=== PATIENT | female | born 1965 | race Caucasian/White ===

== ENCOUNTER → 2016-11-25 | Outpatient (CLI) | payer BC ==
--- NOTE | 2016-11-29 07:05 | MM ---
Reason for exam: screening (asymptomatic). Last mammogram was performed 5 years and 11 months ago. History: Patient is nulliparous. Taking estrogen for 2 months. Physical Findings: A clinical breast exam by your physician is recommended on an annual basis and results should be correlated with mammographic findings. MG Screening Mammo w CAD Bilateral CC and MLO view(s) were taken. Prior study comparison: January 06, 2011, bilateral digital screening mammo w/CAD. May 27, 2006, bilateral screening mammogram w/CAD. The breast tissue is extremely dense which could obscure a lesion on mammography. No significant changes when compared with prior studies. ASSESSMENT: Benign, BI-RAD 2 RECOMMENDATION: Routine screening mammogram of both breasts in 1 year.
== END | disposition home or self-care (01) ==
LOC: RADMAMWWP 13:03
PROVIDERS: ATTEND Family Medicine
DX: Z12.31 Encounter for screening mammogram for malignant neoplasm of breast (principal)

== ENCOUNTER → 2017-03-11 | Outpatient (CLI) | payer BC, OTHER ==
--- NOTE | 2017-03-11 12:32 | ECHOS ---
DATE OF SERVICE: 03/11/2017 AGE: 52Y SEX: F HT: 63" WT: 160 lbs. Protocol Andi: X Others: Stress Echo Stage: IV Dur. of Exercise: 9:50 *Heart Rate Blood Pressure *Rest: 78 Rest: 118/59 * *Max. Achieved: 155 Maximum BP: 136/69 85% PMHR: 141 100% PMHR: 166 *METS: 10.7 INDICATIONS: Dyspnea. MEDICATIONS: - Patient was exercised for a total period of 9 minutes and 50 seconds. Peak heart rate of 155 was achieved. Maximum blood pressure of 136/69 mmHg was noted. Resting EKG shows normal sinus rhythm with normal [place] interval and QRS duration and normal ST-T waves. No ST segment depression suggestive of ischemia is noted. Baseline echocardiographic images reveal a normal left ventricular chamber size with normal left ventricular systolic function. In the immediate postexercise period, normal increase in the wall thickness and contractility is noted. FINAL IMPRESSION: 1. This stress echocardiographic study is negative for stress-induced ischemia. 2. EKG portion of the stress test is not suggestive of ischemia. 3. The patient's exercise tolerance is normal.
== END | disposition home or self-care (01) ==
LOC: RADNMMAIN 08:57
PROVIDERS: ATTEND Family Medicine
DX: R06.00 Dyspnea, unspecified (principal)
CPT/HCPCS: 93017; 93350

== ENCOUNTER → 2017-05-20 | Outpatient (CLI) | payer OTHER ==
[2017-05-20 15:45] LABS: CHCM 33.6; HCT 44.2 % (34.0-46.0); HDW 2.25; HGB 14.6 gm/dL (11.4-16.0); MCH 30.5 pg (25.0-35.0); MCV 92.6 fL (80.0-100.0); Mean Platelet Volume 6.9; RBC 4.77 m/uL (3.80-5.40); RDW 13.2 % (11.5-15.5); WBC 6.6 k/uL (3.8-10.6)
[2017-05-20 15:50] LABS: INR 1.1 (<1.2); Partial Thromboplastin Time 24.9 sec (22.0-30.0)
[2017-05-20 16:00] LABS: Appearance,Urine Cloudy (Clear); Bilirubin,Urine Negative (Negative); Glucose,Urine (UA) Negative (Negative); Ketones,Urine Negative (Negative); Leukocyte Esterase,Urine Negative (Negative); Mucus,Urine Rare /hpf; Nitrite,Urine Negative (Negative); Particle Count 9904; Protein,Urine Negative (Negative); RBC,Urine 7 /hpf (0-5); Specific Gravity,Urine 1.014 (1.001-1.035); Squamous Epithelial Cell,Urine <1 /hpf (0-4); UA Billing (MACRO vs. MICRO) MICRO; Urobilinogen,Urine <2.0 mg/dL (<2.0); WBC,Urine 2 /hpf (0-5)
[2017-05-20 16:03] LABS: ALT 30 U/L (9-52); AST 19 U/L (14-36); Alkaline Phosphatase 66 U/L (38-126); Anion Gap 9 mmol/L; Blood Urea Nitrogen 16 mg/dL (7-17); Calcium 9.8 mg/dL (8.4-10.2); Carbon Dioxide 28 mmol/L (22-30); Chloride 104 mmol/L (98-107); Glucose 88 mg/dL (74-99); Non-African American GFR(MDRD) 58 (>60 ml/min/1.73 sqM); Potassium 4.4 mmol/L (3.5-5.1); Sodium 141 mmol/L (137-145); Total Bilirubin 0.3 mg/dL (0.2-1.3)
== END | disposition home or self-care (01) ==
LOC: LABPAT 15:06
PROVIDERS: ATTEND Orthopaedic Surgery Sports Medicine
DX: Z01.810 Encounter for preprocedural cardiovascular examination (principal); Z01.812 Encounter for preprocedural laboratory examination
CPT/HCPCS: 80053; 81001; 85027; 85610; 85730; 87070

== ENCOUNTER 2017-06-09 12:26 | Inpatient (IN) | payer OTHER ==
[~2017-06-09 12:26] MED LIST: ACETAMINOPHEN TAB 500 MG TAB PO ONE; DEXAMETHASONE SOD PHOSPHATE 10 MG/ML 1 ML VIAL IV ONE; HYDROmorphone 1 MG/ML 1 ML SYRINGE IVP PRN; LIDOCAINE 1% 20 ML VIAL (10MG/ML) FOR IV START INTRADERMA PRN; MELOXICAM 7.5 MG TAB PO ONE; ONDANSETRON 4 MG/2 ML VIAL IVP ONE; SCOPOLAMINE 1.5MG/72HR PATCH TRANSDERM ONE; TRANEXAMIC ACID 1,000 MG in SODIUM CHLORIDE 0.9% 100 ML IVPB ONE; ceFAZolin 2 GM in SODIUM CHLORIDE 0.9% 100 ML IVPB ONE
[2017-06-09] MEDS: LACTATED RINGERS 1,000 ML IV SCH ×2 (12:56→21:41)
[2017-06-09] MEDS ORDERED: MIDAZOLAM 2 MG/2 ML VIAL IV ONE ×2 (13:27)
[2017-06-09] MEDS ORDERED: SODIUM CHLORIDE 0.9% 100 ML BAG ONE (13:41)
[2017-06-09] MEDS ORDERED: fentaNYL (PF) 50 MCG/ML 2 ML AMP ONE (13:41)
[2017-06-09] MEDS ORDERED: MIDAZOLAM 2 MG/2 ML VIAL ONE (13:41)
[2017-06-09] MEDS ORDERED: TRANEXAMIC ACID 1,000 MG/10 ML VIAL ONE (13:41)
[2017-06-09] MEDS ORDERED: MORPHINE SULFATE (PF) 0.3 MG/0.3 ML SYR ONE (13:41)
[2017-06-09] MEDS ORDERED: PROPOFOL 10 MG/ML 20 ML VIAL IV ONE (13:41)
[2017-06-09] MEDS: ROPIVACAINE 246.25 MG, EPINEPHrine 0.5 MG, KETOROLAC 30 MG, cloNIDine HCL/PF 80 MCG, WA... MISCELLANE ONE ×10 (14:24→14:52)
[2017-06-09] MEDS ORDERED: ceFAZolin 3,000 MG in SODIUM CHLORIDE 0.9% IRRIGATIO 3,000 ML IRRIGATION ONE (14:25)
[2017-06-09] MEDS ORDERED: LACTATED RINGERS 1,000 ML IV ONE (14:51)
[2017-06-09] MEDS ORDERED: NALOXONE 0.4 MG/ML 1 ML VIAL IV PRN ×2 (14:58→16:02)
[2017-06-09] MEDS ORDERED: MORPHINE SULFATE 4 MG/ML SYRINGE IVP PRN (14:58)
[2017-06-09] MEDS ORDERED: ONDANSETRON 4 MG/2 ML VIAL IVP PRN (14:58)
[2017-06-09] MEDS ORDERED: ACETAMINOPHEN TAB 325 MG TAB PO PRN (16:02)
[2017-06-09] MEDS ORDERED: NA PHOS,M-B/NA PHOS,DI-BA 133 ML ENEMA RECTAL PRN (16:02)
[2017-06-09] MEDS ORDERED: BISACODYL 10 MG SUPP RECTAL PRN (16:02)
[2017-06-09] MEDS ORDERED: TEMAZEPAM 15 MG CAP PO PRN (16:02)
[2017-06-09] MEDS ORDERED: MAGNESIUM HYDROXIDE 2,400 MG/10 ML CUP PO PRN (16:02)
[2017-06-09] MEDS ORDERED: traMADol 50 MG TAB PO PRN (16:02)
[2017-06-09] MEDS ORDERED: DIAZEPAM 5 MG TAB PO PRN (16:02)
[2017-06-09] MEDS ORDERED: HYDROmorphone 1 MG/ML 1 ML SYRINGE IVP PRN ×2 (16:02)
[2017-06-09] MEDS ORDERED: HYDROcodone/APAP 7.5-325MG 1 EACH TAB PO PRN (16:02)
--- NOTE | 2017-06-09 16:33 | XR ---
EXAMINATION TYPE: XR knee limited LT DATE OF EXAM: 06/09/2017 CLINICAL HISTORY: Right knee pain and arthritis status post total knee replacement. TECHNIQUE: Portable AP and crosstable lateral views of the left knee are obtained immediately postop eratively. COMPARISON: None FINDINGS: Metallic hardware from total left knee arthroplasty is seen and appears satisfactory in al ignment and position. There is evidence of recent surgery with diffuse subcutaneous gas. IMPRESSION: METALLIC HARDWARE FROM TOTAL LEFT KNEE ARTHROPLASTY IS SATISFACTORY IN ALIGNMENT.
[2017-06-09] MEDS: diphenhydrAMINE 50 MG/ML 1 ML VIAL IVP PRN ×2 (16:42→21:45)
[2017-06-09 17:20] VITALS: BMI 28.3
[2017-06-09 21:22] LABS: Glucose,Whole Blood 115 mg/dL (75-99)
[2017-06-09] MEDS: ASPIRIN 325 MG TAB PO SCH (21:40)
[2017-06-09] MEDS: SENNOSIDES-DOCUSATE SODIUM 1 EACH TAB PO SCH (21:40)
[2017-06-10] MEDS: ceFAZolin 2 GM in SODIUM CHLORIDE 0.9% 100 ML IVPB SCH ×2 (00:06→09:10)
[2017-06-10] MEDS: LACTATED RINGERS 1,000 ML IV SCH ×3 (05:05→11:13)
[2017-06-10] MEDS: diphenhydrAMINE 50 MG/ML 1 ML VIAL IVP PRN (05:06)
--- NOTE | 2017-06-10 07:26 | P.PN ---
Progress Note - Text Date: 06/10/2017 Time: 707 The patient is status post, left total knee arthroplasty. Vital signs stable VAS: 2-10 The patient incurred some minimal itching yesterday, this itching is now subsiding. Pain meds to be managed by service.
[2017-06-10 07:52] LABS: Basophils % (A) 0 %; CH 29.9; CHCM 32.8; Eosinophils % (A) 0 %; HDW 2.27; HGB 12.1 gm/dL (11.4-16.0); Luc # (Auto) 0.14; Luc % (Auto) 1; Lymphocytes # (A) 1.7 k/uL (1.0-4.8); Lymphocytes % (A) 12 %; MCH 30.7 pg (25.0-35.0); MCHC 33.6 g/dL (31.0-37.0); MCV 91.5 fL (80.0-100.0); Mean Platelet Volume 6.6; Monocytes # (A) 0.7 k/uL (0-1.0); Monocytes % (A) 5 %; Neutrophils # (A) 11.1 k/uL (1.3-7.7); Neutrophils % (A) 81 %; RBC 3.93 m/uL (3.80-5.40); RDW 12.3 % (11.5-15.5); WBC 13.6 k/uL (3.8-10.6); WBC (Perox) 13.58
[2017-06-10] MEDS: HYDROcodone/APAP 7.5-325MG 1 EACH TAB PO PRN ×3 (09:08→20:27)
[2017-06-10] MEDS: MULTIVITAMINS, THERA 1 EACH TAB PO SCH (09:10)
[2017-06-10] MEDS: ASPIRIN 325 MG TAB PO SCH ×2 (09:10→20:27)
--- NOTE | 2017-06-10 09:42 | P.PN ---
Subjective Principal diagnosis: Status post left total knee arthroplasty Patient is postop day #1 status post left total knee arthroplasty. She is seen at bedside this morning. She has pain at the surgical site as expected. She denies any new complaints including numbness, tingling, calf pain, fever, chills , chest pain or shortness of breath. Objective - Vital Signs Vital signs: Vital Signs Temp 98.0 F 06/10/17 07:00 Pulse 73 06/10/17 07:00 Resp 16 06/10/17 07:00 BP 110/64 06/10/17 07:00 Pulse Ox 97 06/10/17 07:00 Intake & Output 06/09/17 06/10/17 06/10/17 18:59 06:59 18:59 Intake Total 1501 2000 Output Total 350 1300 Balance 1151 700 Weight 72.575 kg Intake: IV 1501 1200 Lactated Ringers 1,000 ml 1200 @ 100 mls/hr IV .Q10H LISSA Rx#:[id number] Oral 800 Output: Urine 250 1300 Estimated Blood Loss 100 Other: Voiding Method Indwelling Catheter Indwelling Catheter - Exam Inspection of the left lower extremity shows benign surgical wound. There is no active bleeding or drainage. Calf is soft and nontender. Motor and sensation is intact throughout the left lower extremity. 2+ dorsalis pedis pulses and less then 2 second capillary refill is present. - Constitutional General appearance: Present: no acute distress - Psychiatric Psychiatric: Present: A&O x's 3, appropriate affect, intact judgment & insight - Labs CBC & Chem 7: 06/10/17 06:47 Labs: Abnormal Lab Results - Last 24 Hours (Table) 06/09/17 06/10/17 Range/Units 21:15 06:47 WBC 13.6 H (3.8-10.6) k/uL Neutrophils # 11.1 H (1.3-7.7) k/uL POC Glucose (mg/dL) 115 H (75-99) mg/dL Assessment and Plan (1) Osteoarthritis of left knee Narrative/Plan: She'll continue with postop orthopedic protocol including pain management, wound care and physical therapy along with DVT prophylaxis and postoperative medical management. Expected discharge to home with home health tomorrow 2016 Status: Acute Time with Patient: Less than 30
[2017-06-10] MEDS: HYDROmorphone 1 MG/ML 1 ML SYRINGE IVP PRN ×3 (11:19→22:45)
--- NOTE | 2017-06-10 14:43 | OP ---
DATE OF PROCEDURE: 06/09/2017 PREOPERATIVE DIAGNOSIS: Left knee osteoarthrosis. POSTOPERATIVE DIAGNOSIS: Left knee osteoarthrosis. OPERATION: Left total knee arthroplasty. SURGEON: Marty Gupta MD REMEDIAL READING TEACHER: Jaiden Sanchez PA-C ANESTHESIA: Spinal with sedation. ESTIMATED BLOOD LOSS: 100 mL TOURNIQUET TIME: 48 minutes at 250 mmHg. COMPLICATIONS: None apparent. DRAINS: None. DISPOSITION: Postanesthesia care unit. INDICATIONS: Elba is a very pleasant 52-year-old female with longstanding history of left knee pain. History and physical examination consistent with advanced left knee osteoarthrosis. She has been through significant nonoperative management up to this point. Further treatment options were discussed and she has decided to go forward with left total knee arthroplasty. The risks of the procedure were discussed with her in detail. These risks include but are not limited to the risk of infection, nerve damage, bleeding, pain, and small risk of deep vein thrombosis, which could lead to fatal pulmonary embolism. There is also risk of loosening of the implant which could require revision operation. The patient understands these risks. All of her questions were answered to her satisfaction and appropriate informed consent was obtained. DESCRIPTION OF THE PROCEDURE: The patient identified in the preoperative holding area. The surgical site was marked by both the patient and myself. She was given 2 grams of Ancef IV for prophylactic purposes. She was then transferred to the operative suite where she was placed supine on the operative table. Spinal anesthetic was then administered and dosed per the Anesthesia Department without apparent complication. Examination under anesthesia was performed. The patient had full extension. She had 110 degrees of flexion and medial collateral ligament, lateral collateral ligament and posterior cruciate ligaments were stable. Tourniquet was then placed high on the left upper thigh well padded in preparation for surgery. The patients left lower extremity was then prepped and draped in usual sterile fashion. Standard surgical pause was then undertaken to ensure that we are operating on the correct site and that appropriate preoperative antibiotics were given. All staff in the room were in agreement and we proceeded. The outline of the patella was marked with surgical pen. Planned 12 cm vertical incision centered over the patella was marked with surgical pen. The leg was then exsanguinated with an Esmarch dressing. The knee was then flexed and the tourniquet was insufflated to 250 mmHg. The total tourniquet time for the procedure was 48 minutes. Incision was then made with a 10 blade scalpel. Dissection was carried down sharply through overlying fascia. Great care was taken to minimize the skin flaps. The knee was then exposed using standard medial parapatellar approach. A small cuff of quadriceps tendon was then left for suturing. She was in a mild amount of varus preoperatively. A standard medial release was then made. Superficial medial collateral ligaments were dissection off the bone around to the posterior aspect of the proximal tibia. The medial meniscus was then excised as well. The lateral meniscus was also released anteriorly. The leg was then externally rotated. The patella was everted. The knee was flexed. The retractors were then placed to protect the collateral ligaments. I then proceeded to remove the infrapatellar fat pad. This was excised sharply tangentially with fibers of the patellar tendon. I then proceeded to remove peripheral osteophytes. This was done with a rongeur. I then proceeded with a distal femoral resection. She did have near full extension. A planned 9 mm resection was then done. The femoral canal was then entered in the midline of the femur approximately 10 mm anterior to the origin of the posterior cruciate ligament. The juanito was then advanced down to center of the femur and placed intramedullary. Based on the preoperative radiographs the angle between the anatomic and mechanical access of the femur was approximately 4 to 5 degrees. The valgus angle of the distal femoral cutting guide was then set at 4 degrees for the left knee. The distal femoral cutting guide was then advanced over the intramedullary juanito. This was seated firmly against the femur. I then as mentioned planned to take 9 mm off the distal femur. The cutting block was then secured onto the femur with pins. The jig was then removed and the distal femoral cut was made through the slot of the block. The pins were then removed and the distal femoral cutting block was removed. The accuracy of the distal femoral cuts was checked with two flat bars. I then proceeded with femoral sizing. The posterior referencing sizing guide was held firmly against the resected distal surface of the femur. The posterior condyles were resting on the posterior plane of the guide. The sizing stylus was placed onto the anterior femur. The size was measured as size 5. I then assessed for femoral rotation. The plan was for 3 degrees of external rotation. 3 degrees of external rotation was placed onto the jig. These holes were then marked. I then confirmed the rotation by three separate methods. This was done using the epicondylar axis as well as Whitesides line and posterior referencing. It was deemed that the external rotation was proper. I then went forward with placing the femoral cutting block. This was placed over previously placed pin holes. The angle wing was then placed onto the anterior slots to ensure that we would not notch the anterior femur with the anterior femoral cut. I then proceeded with the anterior femoral cut. This was flush with the anterior cortex of the femur. Posterior cuts were then made followed by the anterior chamfer cut and then posterior chamfer cut. The cutting block was then removed. Throughout the resection the collateral ligaments were protected with retractors. I then placed a trial size 5 femur. It fit flush with the distal end of the femur. It was slightly wide although it seemed appropriate with when viewing through the narrow slots. The drill holes were then made. I then proceeded with tibial cut. I planned for cruciate retaining knee. The guide was placed and set for varus, valgus and then for slope. The height was set for approximate 2 mm resection from the medial tibial plateau which was the lower side. I was happy with alignment and the amount of resection. The cutting block was then pinned to the proximal tibia. The alignment juanito was removed and the proximal tibia was resected with reciprocating saw. Again, this was done with retractors protecting the collateral ligaments as well as the posterior cruciate ligament. I then proceed to evaluate the flexion, extension gaps. A 14 mm block was placed. Flexion extension gaps were equal. I then proceeded with resection of the posterior osteophytes. She had very minimal posterior osteophytes. This was done using a curved osteotome. This resected the posterior osteophytes and posterior capsule striping was also done off the posterior aspect of the femur at this time. The osteophytes were then removed. I then proceeded with resection of the patella. The thickness of the patella was measured using the caliper. The thickness was 20 mm. The thickness of the anticipated patellar dome was taken into account. Resection was then performed and confirmed to be equal in four quadrants using a calliper. Approximately 12 mm of bone remained after the resection. A 29 x 8 mm standard patellar trial was then placed. The holes were then drilled and trial was then placed. I then proceeded with sizing tibial plate. A size C tibial plate fit very nicely. I then placed a trial femur, tibial tray, and patellar button. A 14 mm trial tibial insert was also placed. The components fit very nicely. She had full flexion and extension. Flexion extension gaps were equal and stable to both varus and valgus stress. Patella tracked appropriately. The tibial tray rotation was marked with Bovie. This was externally rotated properly. I then proceeded with tibial preparation. I first drilled the femoral holes, removed the femoral component. The tibial tray was set for the proper external rotation as well as medial lateral placement onto the tibia. It was then pinned into place. I then proceeded with punching the keel. I then decided to proceed with cementing of all of our components. The knee was thoroughly irrigated with sterile saline solution via pulse lavage. The lateral geniculate artery was identified and cauterized. All blood was removed from the bone at the tibia, femur and patella with pulse lavage. I then proceeded with cementing. Two packs of antibiotic bone cement were prepared on the back table by certified control systems technician. I then proceeded with cementing of the tibia first. The cement was impacted into the keel as well as deeply seated into the bone. A second coat of cement was then placed. The tibia was then impacted into place. Excess cement was removed with Cushings and Jokers. I then proceeded with cementing with femoral component. The femoral component was also cemented using standard technique. Excess cement was removed. A 14 mm trial insert was then placed into the knee. It was brought into full extension with constant axial load placed until the cement had hardened. Patellar component was then cemented. This was held firmly with compressive device until the cement had dried. When the cement had dried the knee was taken out of extension. All excess cement was removed from around the processes. I then trialed the knee with 14 mm insert. Flexion and extension gaps were appropriate. I then trialed a 16 mm insert. Flexion and extension gaps felt a little bit better. The knee was stable with 16 mm insert. It came into full extension. I decided to go forward with 16 mm crosslink cruciate retaining tibial insert. Polyethylene was then placed on the tibial tray and locked. The knee was reduced. The knee was again further irrigated with sterile saline solution with antibiotic added. The tourniquet was then deflated. The total tourniquet time for the procedure was 48 minutes at 250 mmHg. Final components were Sonido persona size 5 narrow cruciate retaining femoral component, a size C tibial tray, a 16 mm medial congruent cruciate retaining polyethylene insert and a 29 x 8 mm patella. I then proceeded with closure. Again, the knee was thoroughly irrigated. The quadriceps tendon and medial retinaculum were reapproximated with #2 Ethibond suture. The extension mechanism was then closed with running #2 Quill suture. Subcutaneous tissues were then closed with 2-0 Vicryl interrupted suture. The skin was closed with running 3-0 Quill suture. Dermabond was applied to the incision. The sterile compressive dressings were then applied. All sponge and needle counts were deemed correct prior to closure. The patient tolerated the procedure without apparent complications. She was transferred to recovery room in stable condition. MINGO
[2017-06-10] MEDS: hydrOXYzine PAMOATE 25 MG CAP PO PRN ×2 (19:38→22:45)
[2017-06-10] MEDS ORDERED: ONDANSETRON 4 MG/2 ML VIAL IVP PRN (22:56)
[2017-06-11] MEDS: SENNOSIDES-DOCUSATE SODIUM 1 EACH TAB PO SCH (01:13)
[2017-06-11] MEDS: LACTATED RINGERS 1,000 ML IV SCH ×3 (01:13→08:08)
[2017-06-11] MEDS: HYDROmorphone 1 MG/ML 1 ML SYRINGE IVP PRN (02:30)
[2017-06-11] MEDS: HYDROcodone/APAP 7.5-325MG 1 EACH TAB PO PRN ×2 (02:30→09:02)
[2017-06-11 07:59] VITALS: BP 132/66; PULSE 58; RESP 14; TEMP 98.2
[2017-06-11] MEDS: hydrOXYzine PAMOATE 25 MG CAP PO PRN (09:02)
[2017-06-11] MEDS: MULTIVITAMINS, THERA 1 EACH TAB PO SCH (10:59)
[2017-06-11] MEDS: ASPIRIN 325 MG TAB PO SCH (10:59)
--- NOTE | 2017-06-11 12:02 | P.DS ---
Providers Date of admission: 06/09/17 12:26 Expected date of discharge: 06/11/17 Attending physician: Marty Gupta Consults: 06/09/17 16:02 Consult Physician Routine Consulting Provider: Gerardo Aaron Consult Reason/Comments: post op medical management Do you want consulting provider notified?: Yes 06/09/17 21:49 Consult Physician Routine Consulting Provider: Margarita Del Valle Consult Reason/Comments: medical management Do you want consulting provider notified?: Yes Primary care physician: Gerardo Aaron - Discharge Diagnosis(es) (1) Osteoarthritis of left knee Current Visit: Yes Status: Acute Priority: Medium Hospital Course: This is a pleasant 52-year-old female who presented with left knee osteoarthrosis who failed outpatient conservative therapy. She admitted for left total knee arthroplasty performed by Dr. Marty Gupta. The patient tolerated the procedure well and did well postoperatively. She was having some difficulty yesterday but states her pain is much better controlled this morning. She is unable to ambulate the hallways not significant difficulty. She was experiencing some nausea yesterday his mother has subsided. She feels given her significant improvement she is ready for discharge home today. Condition on day of discharge stable. Patient was cleared preoperatively for surgery by Dr. Aaron. Patient currently denies any nausea, vomiting, fever, or chills. Patient is eating and voiding freely without difficulty. She shower without a dressing intact over the left knee in 72 hours. She should keep her incision clean, dry, and intact. She may continue weightbearing as tolerated on the left lower extremity. She may elevate and apply ice to left knee for comfort support as needed. She is given prescriptions for aspirin 325 mg, Colace 100 mg, and [place] 7.5 mg/325 mg at discharge. She should take his medications as prescribed. Physical Exam Total Knee Arthroplasty: Status post surgical day number 2 Patient is awake, alert, and oriented 3 Vital signs stable Good chest excursion with deep inspiration and expiration Abdomen soft nontender No signs or symptoms of DVT; no calf pain Dressing over the left knee is clean, dry, and intact; no erythema, purulence, or signs of infection Patient has full foot and ankle motion without difficulty bilateral lower extremities Dorsiflexion, plantar flexion, and extensor hallucis longus positive sustained bilaterally Neurovascular status left lower extremity intact Capillary refill lower extremity is bilaterally less than 2 seconds Procedures: Left total knee arthroplasty Patient Condition at Discharge: Stable Plan - Discharge Summary New Discharge Prescriptions: New Aspirin 325 mg PO BID #60 tab Docusate [Colace] 100 mg PO BID #60 capsule HYDROcodone/APAP 7.5-325MG [[place] 7.5-325] 1 - 2 each PO Q6HR PRN #90 tab PRN Reason: Pain No Action Cyanocobalamin (Vitamin B-12) [Vitamin B-12] 1,000 mcg PO DAILY Cholecalciferol (Vitamin D3) [Vitamin D3] 2,000 unit PO DAILY Discharge Medication List Cholecalciferol (Vitamin D3) [Vitamin D3] 2,000 unit PO DAILY 05/30/17 [History] Cyanocobalamin (Vitamin B-12) [Vitamin B-12] 1,000 mcg PO DAILY 05/30/17 [ History] Aspirin 325 mg PO BID #60 tab 06/10/17 [Rx] Docusate [Colace] 100 mg PO BID #60 capsule 06/10/17 [Rx] HYDROcodone/APAP 7.5-325MG [[place] 7.5-325] 1 - 2 each PO Q6HR PRN #90 tab [Rx] Follow up Appointment(s)/Referral(s): Marty Gupta MD [STAFF PHYSICIAN] - 06/24/17 3:20 pm Activity/Diet/Wound Care/Special Instructions: 1. Weight-bear as tolerated 2. Take meds as directed 3. Follow up with Dr. Gupta in office 4. Keep wound clean and dry 5. May shower in 72 hours Discharge Disposition: HOME WITH HOME HEALTH SERVICES
[2017-06-11] MEDS ORDERED: PANTOPRAZOLE 40 MG TABLET PO SCH (17:30)
--- NOTE | 2017-06-12 12:37 | CONS ---
REASON FOR CONSULTATION: Advice regarding DJD and other multiple medical issues requested by orthopedic surgery. HISTORY OF PRESENT ILLNESS: This 52-year-old woman with past medical history of DJD, history of joint replacement being followed by Dr. Gerardo Aaron in the outpatient setting was admitted after total left knee arthroplasty. There is no history of fever, rigors. No history of headache, loss of consciousness or seizures. PAST MEDICAL HISTORY: History of DJD, history of joint replacement, remote history of nicotine dependence. Medications prior to admission include: Vitamins and Colace. ALLERGIES: ASPIRIN AND PENICILLIN. FAMILY HISTORY: History of thyroid cancer. SOCIAL HISTORY: Previous history of smoking. No history of alcohol. REVIEW OF SYSTEMS: ENT: No diminished hearing or vision. CARDIOVASCULAR: No angina. RESPIRATORY: No cough. GI: No nausea. : No dysuria. NERVOUS SYSTEM: No numbness or weakness. ALLERGY/IMMUNOLOGY: No asthma or hayfever. MUSCULOSKELETAL: As mentioned earlier. HEMATOLOGY/ONCOLOGY: No history of anemia. ENDOCRINE: No history of diabetes or hypothyroidism. CONSTITUTIONAL: As mentioned earlier. DERMATOLOGY: Negative. RHEUMATOLOGY: Negative. PSYCHIATRY: As mentioned earlier. PHYSICAL EXAMINATION: The patient is alert and oriented x3. Pulse is 58, blood pressure 133/66, respirations 14, temperature 98.1, pulse ox 98% on room air. HEENT: Conjunctivae normal. NECK: No jugular venous distention. CARDIOVASCULAR: S1, S2 normal. No S3 or S4. RESPIRATORY: Breath sounds diminished at the bases. No rhonchi, no crackles. ABDOMEN: Soft, nontender, no mass palpable. LEGS: Status post left knee arthroplasty. Minimal swelling present. NERVOUS SYSTEM: Higher function as mentioned. Moves all four limbs. No focal motor sensory deficits. LYMPHATICS: No lymphadenopathy in the neck, axillae or groin. SKIN: No rash, ulcer or bleeding. LABS: WBC 13.6, glucose 115. ASSESSMENT: 1. Status post left knee joint arthroplasty. 2. History of degenerative joint disease. 3. Increased random blood sugar. 4. History of hysterectomy. RECOMMENDATIONS AND DISCUSSION: In this 52-year-old woman who presented with multiple complex medical issues, we well monitor the patient closely. Continue the current medications. Continue symptomatic treatment. The patient is significantly improving at this time. I recommend to continue the current medications. follow closely with Dr. Aaron in the outpatient setting. Further recommendations to follow per Orthopedic Surgery. Further recommendations to follow. MTDD
== END 2017-06-11 14:15 | disposition home health service (06) | DRG 470 ==
LOC: 2ORMAIN 12:26 → 3SUR 16:15
PROVIDERS: ADMIT Orthopaedic Surgery Sports Medicine; ATTEND Orthopaedic Surgery Sports Medicine
PROC: 0SRD0J9 Replacement of Left Knee Joint with Synthetic Substitute, Cemented, Open Approach (ICD-10-PCS; principal; 2017-06-09 14:25)
DX: M17.12 Unilateral primary osteoarthritis, left knee (principal); L29.9 Pruritus, unspecified; R11.0 Nausea; M25.762 Osteophyte, left knee; Z88.0 Allergy status to penicillin; Z87.891 Personal history of nicotine dependence; Z80.8 Family history of malignant neoplasm of other organs or systems; Z90.710 Acquired absence of both cervix and uterus; Z79.82 Long term (current) use of aspirin; Z79.1 Long term (current) use of non-steroidal anti-inflammatories (NSAID); Z87.01 Personal history of pneumonia (recurrent); Z86.19 Personal history of other infectious and parasitic diseases; Z83.3 Family history of diabetes mellitus; Z82.49 Family history of ischemic heart disease and other diseases of the circulatory system; Z82.3 Family history of stroke; Z82.62 Family history of osteoporosis
CPT/HCPCS: 85025; 88300

== ENCOUNTER → 2019-11-09 | Outpatient (CLI) | payer BC ==
--- NOTE | 2019-11-12 09:50 | MM ---
Reason for exam: screening (asymptomatic). Last mammogram was performed 2 years and 11 months ago. History: Patient is nulliparous. Taking estrogen for 2 months. Physical Findings: A clinical breast exam by your physician is recommended on an annual basis and results should be correlated with mammographic findings. MG Screening Mammo w CAD Bilateral CC and MLO view(s) were taken. Prior study comparison: November 25, 2016, bilateral MG screening mammo w CAD. January 06, 2011, bilateral digital screening mammo w/CAD. The breast tissue is heterogeneously dense. This may lower the sensitivity of mammography. No suspicious abnormality. No significant changes when compared with prior studies. ASSESSMENT: Negative, BI-RAD 1 RECOMMENDATION: Routine screening mammogram of both breasts in 1 year.
== END | disposition home or self-care (01) ==
LOC: RADMAMWWP 08:51
PROVIDERS: ATTEND Nurse Practitioner Adult Health
DX: Z12.31 Encounter for screening mammogram for malignant neoplasm of breast (principal)
CPT/HCPCS: 77067

== ENCOUNTER → 2020-04-22 | Outpatient (CLI) | payer BC ==
--- NOTE | 2020-04-22 13:16 | ECHOS ---
STRESS ECHOCARDIOGRAM LUMASON: - Vial INDICATIONS: Shortness of breath MEDICATIONS: BASELINE HEART RATE: 75 BASELINE BLOOD PRESSURE: 142/86 MAXIMUM HEART RATE: 144 MAXIMUM BLOOD PRESSURE: 156/96 85% MPHR: 139 100% MPHR: 163 METS: 9.9 MAXIMUM STAGE REACHED: 3 TOTAL EXERCISE TIME: 8:32 CLINICAL INFORMATION: Baseline rhythm is a sinus mechanism, rate of 75, RSR prime. Baseline blood pressure 142/86 mmHg. Patient exercised on Andi protocol for 8 minutes, 30 seconds reaching peak rate of 144 beats per minute which is equal to 88% maximum predicted heart rate. Peak blood pressure 185/84 mmHg. Test was terminated due to fatigue. There was no chest pain, electrocardiograph monitoring revealed no evidence of diagnostic ischemic ST deviation. FINDINGS: Baseline echocardiogram revealed normal wall motion, wall thickening and motion. At peak exercise, there was normal wall motion augmentation with no hypokinesis or dyskinesis. CONCLUSION: 1. Average exercise tolerance with normal echocardiograph response to exercise. 2. Normal stress echocardiogram with no evidence of stress-induced ischemia. MMODL / IJN: [id number] /
== END | disposition home or self-care (01) ==
LOC: RADNMMAIN 09:53
PROVIDERS: ATTEND Family Medicine
DX: R06.00 Dyspnea, unspecified (principal)
CPT/HCPCS: 93351

== ENCOUNTER → 2021-01-05 | Outpatient (CLI) | payer BC | LOC: RADMRIMAIN 06:36 | PROVIDERS: ATTEND Podiatrist Foot & Ankle Surgery | DX: Z53.9 Procedure and treatment not carried out, unspecified reason (principal) ==

== ENCOUNTER → 2023-12-27 | Outpatient (CLI) | payer MEDICARE ==
--- NOTE | 2023-12-27 14:44 | MM ---
Reason for Exam: Screening (asymptomatic). Last mammogram was performed 4 year(s) and 2 month(s) ago. Patient History: Menarche at age 10. Patient has no children. Left ovary removed at age 34. Hysterectomy at age 34. Currently using Estrogen, for 2 months. Risk Values: Joy 5 year model risk: 1.6%. NCI Lifetime model risk: 8.1%. Prior Study Comparison: 01/06/2011 Bilateral Screening Mammogram, [facility]. 11/25/2016 Bilateral Screening Mammogram, [facility]. 11/09/2019 Bilateral Screening Mammogram, [facility]. Tissue Density: The breasts are heterogeneously dense, which may obscure small masses. Findings: Analyzed By CAD. There is no suspicious group of microcalcifications or new suspicious mass. Overall Assessment: Negative, BI-RAD 1 Management: Screening Mammogram of both breasts in [address] [facility] will attempt to contact patient to return for supplemental views and ultrasound if indicated. Patient should continue monthly self-breast exams. A clinical breast exam by your physician is recommended on an annual basis. This exam should not preclude additional follow-up of suspicious palpable abnormalities. Note on Joy scores and lifetime risk: 1. A Joy score greater than 3% is considered moderate risk. If this is the case, consider specialist referral to assess eligibility for a risk reducing agent. 2. If overall lifetime risk for the development of breast cancer is 20% or higher, the patient may qualify for future screening with alternating mammogram and breast MRI. Electronically signed and approved by: George Mojica DO
== END | disposition home or self-care (01) ==
LOC: RADMAMWWP 12:55
PROVIDERS: ATTEND Family Medicine
DX: Z12.31 Encounter for screening mammogram for malignant neoplasm of breast (principal); Z78.0 Asymptomatic menopausal state
CPT/HCPCS: 77063; 77067

== ENCOUNTER → 2023-12-27 | Outpatient (CLI) | payer MEDICARE ==
--- NOTE | 2023-12-27 19:17 | BD ---
EXAMINATION TYPE: Axial Bone Density DATE OF EXAM: 12/27/2023 CLINICAL HISTORY: 58 years old Female. ICD-10 CODE: Z13.820 ASYMPTOMATIC MENOPAUSAL STATE Height: 61 Weight: 188 FRAX RISK QUESTIONS: Family History (Parent hip fracture): no History of Fracture in Adulthood: no Secondary Osteoporosis: yes 3. Menopause before 45: yes RISK FACTORS HISTORY OF: Surgery to Spine/Hip(right/left)/Wrist (right/left): no MEDICATIONS: Thyroid Medications: no Osteoporosis Medications: no EXAM MEASUREMENTS: Bone mineral densitometry was performed using the [employer] System. Bone mineral density as measured about the Lumbar spine is: ----- L1-L4(G/cm2): 0.998 T Score Values are as follows: ----- L1: -2.0 ----- L2: -0.8 ----- L3: -1.4 ----- L4: -1.8 ----- L1-L4: -1.5 Z Score Values are as follows: ----- L1: -1.4 ----- L2: -0.2 ----- L3: -0.8 ----- L4: -1.3 ----- L1-L4: -0.9 Bone mineral density baseline Bone mineral density about the R hip (g/cm2): 0.965 Bone mineral density about the L hip (g/cm2): 0.875 T Score values are as follows: -----R Neck: -1.8 -----L Neck: -2.1 -----R Total: -0.3 -----L Total: -1.1 Z Score values are as follows: -----R Neck: -1.0 -----L Neck: -1.3 -----R Total: 0.1 -----L Total: -0.6 Bone mineral density baseline FRAX%s: The graph provided illustrates a 9.6% chance for a major osteoporotic fx and a 1.3% chance fo r the hips probability for fx in 10 years time. IMPRESSION: Osteopenia (T Score between -2.5 and -1). There is slightly increased risk of fracture and the patient may be considered for treatment. Re-Screen 2-5 years. NOTE: T-SCORE=SD OF THE YOUNG ADULT MEAN.
== END | disposition home or self-care (01) ==
LOC: RADBDWWP 12:52
PROVIDERS: ATTEND Family Medicine
DX: Z13.820 Encounter for screening for osteoporosis (principal); M85.89 Other specified disorders of bone density and structure, multiple sites; Z78.0 Asymptomatic menopausal state
CPT/HCPCS: 77080

== ENCOUNTER → 2024-09-02 | Outpatient (CLI) | payer MEDICARE ==
--- NOTE | 2024-09-02 20:59 | MR ---
EXAMINATION TYPE: MRI right shoulder without IV contrast DATE OF EXAM: 09/02/2024 COMPARISON: 08/17/2024 HISTORY: Right shoulder pain TECHNIQUE: Multiplanar, multisequence imaging of the right shoulder is performed without contrast. FINDINGS: Rotator Cuff: Tiny partial intrasubstance/articular tear of the mid supraspinatus tendon at its footp late. Mild subscapularis tendinopathy with small split tear of its cranial fibers. Infraspinatus and teres minor tendons are intact. No significant rotator cuff muscle atrophy or edema. Acromioclavicular Joint: Severe osteoarthritis including marginal osteophytes, capsular hypertrophy, subcortical cysts and marked bone marrow edema. Alignment is maintained. Glenohumeral Joint: No displaced labral tear or para labral cyst. Alignment is intact. No focal chond ral defects or joint effusion. Biceps Tendon: Mild subluxation into the subscapularis split tear. Mild intracapsular biceps tendinop athy. Bone marrow signal: Marked bone marrow edema about the acromioclavicular joint which may be degenerat nisha and/or contusive. Negative for fracture or marrow replacement. Tiny enthesopathic cyst in the les ser humeral tuberosity. Other: Small amount of fluid in the subacromial/subdeltoid bursa. IMPRESSION: 1. Small rim rent tear of the supraspinatus tendon as above. 2. Mild subscapularis tendinopathy with small split tear. Subluxation of the biceps tendon into the s ubscapularis split tear. Mild intracapsular biceps tendinopathy. 3. Severe acromioclavicular joint osteoarthritis including marked bone marrow edema. [facility], , 09/02/2024 8:56 PM
== END | disposition home or self-care (01) ==
LOC: RADMRIMAIN 07:25
PROVIDERS: ATTEND Orthopaedic Surgery
DX: M19.011 Primary osteoarthritis, right shoulder (principal); M75.111 Incomplete rotator cuff tear or rupture of right shoulder, not specified as traumatic; S43.001A Unspecified subluxation of right shoulder joint, initial encounter

== ENCOUNTER → 2024-10-25 | Outpatient (CLI) | payer MEDICARE | END | disposition home or self-care (01) | LOC: LABPAT 13:08 | PROVIDERS: ATTEND Orthopaedic Surgery | DX: Z01.818 Encounter for other preprocedural examination (principal) ==

== ENCOUNTER 2024-11-08 05:50 | Day surgery (SDC) | payer MEDICARE ==
--- NOTE | 2024-11-07 23:02 | HP ---
HISTORY AND PHYSICAL Surgery is scheduled for 11/08/2024. HISTORY OF PRESENT ILLNESS: Elba James is a 59-year-old patient, seen with progressive right shoulder pain. After having treatment options discussed, she elected to proceed with right shoulder arthroscopy. Consent was obtained. PAST MEDICAL HISTORY: Gastroesophageal reflux disease. SURGICAL HISTORY: Hysterectomy, left total knee arthroplasty, and cholecystectomy. DAILY MEDICATIONS: 1. Methadone. 2. Omeprazole. ALLERGIES: Penicillin. SOCIAL HISTORY: She denies tobacco use. PHYSICAL EVALUATION OF THE RIGHT SHOULDER: Flexion is 140 degrees. Abduction is 130 degrees. External rotation is 40 degrees with pain and weakness. She has tenderness along the anterolateral acromion, bicipital groove, rotator cuff tendon, long head biceps tendon. Impingement sign is positive at 90 degrees. Cross-body adduction sign is positive. Drop-arm sign is positive. Distal neurovascular exam is intact. IMAGING STUDIES: Right shoulder radiographs revealed a type 2 acromion, acromioclavicular joint osteoarthritis and cystic changes of the tuberosity. MRI of right shoulder revealed a partial rotator cuff tendon tear, severe acromioclavicular joint osteoarthritis, biceps partial tear, subluxation. IMPRESSION: 1. Right shoulder impingement with rotator cuff tear. 2. Right shoulder biceps partial tendon tear. 3. Right shoulder acromioclavicular joint osteoarthritis. PLAN: Right shoulder arthroscopy with subacromial decompression, arthroscopic rotator cuff repair, biceps tenodesis, Andrés, and debridement. MMODL / IJN: [id number] /
[2024-11-08] MEDS ORDERED: LACTATED RINGERS 1,000 ML IV SCH (06:18)
[2024-11-08] MEDS ORDERED: LIDOCAINE 1% (10MG/ML) FOR IV START INTRADERMA PRN (06:18)
[2024-11-08] MEDS: LACTATED RINGERS 1,000 ML IV ONE ×3 (06:30→08:55)
[2024-11-08] MEDS: IV FLUID CONTINUATION 1,000 ML IV ONE (06:30)
[2024-11-08] MEDS: MIDAZOLAM 2 MG/2 ML VIAL IV PRN (06:50)
[2024-11-08] MEDS ORDERED: HYDROmorphone 0.5 MG/0.5 ML SYRINGE IVP PRN (07:00)
[2024-11-08] MEDS: fentaNYL (PF) 50 MCG/ML 2 ML AMP IVP PRN (07:00)
[2024-11-08 07:09] VITALS: TEMP 97
[2024-11-08] MEDS: DEXAMETHASONE SOD PHOSPHATE 4 MG/ML 1 ML VIAL IV ONE (07:13)
[2024-11-08] MEDS: ONDANSETRON 4 MG/2 ML VIAL IVP ONE (07:13)
[2024-11-08] MEDS ORDERED: KETOROLAC 15 MG/ML 1 ML VIAL ONE (07:27)
[2024-11-08] MEDS ORDERED: SUCCINYLCHOLINE CHLORIDE 200 MG/10 ML VIAL IV ONE (07:27)
[2024-11-08] MEDS ORDERED: LIDOCAINE 4% LTA KIT (4 ML) TOPICAL ONE (07:27)
[2024-11-08] MEDS ORDERED: ROPIVACAINE 5 MG/ML 30 ML VIAL ONE (07:27)
[2024-11-08] MEDS ORDERED: DEXAMETHASONE SOD PHOSPHATE 4 MG/ML 1 ML VIAL ONE (07:27)
[2024-11-08] MEDS ORDERED: LIDOCAINE 1% INJ 10MG/ML (20 ML MDV) ONE (07:27)
[2024-11-08] MEDS ORDERED: PROPOFOL 10 MG/ML 20 ML VIAL IV ONE (07:27)
[2024-11-08] MEDS ORDERED: fentaNYL (PF) 50 MCG/ML 2 ML AMP ONE (07:27)
--- NOTE | 2024-11-08 08:01 | P.ANPRN ---
Procedure Note - Anesthesia - Nerve Block Performed Right Interscalene Single Time Out Performed: Yes Date of Procedure: 11/08/24 Procedure Start Time: 06:40 Procedure Stop Time: 06:45 Location of Patient: PreOp Indication: Acute Post-Operative Pain, Analgesia, Requested by Surgeon Sedation Type: Sedate with meaningful contact maintained Preparation: Sterile Prep Position: Sitting Catheter: None Needle Types: Pajunk Needle Gauge: 21 Ultrasound used to visualize needle placement: Yes Ultrasound used to observe medication spread: Yes Injectate: 0.5% Ropivacaine (see comment for volume) ([id number]) Narrative: Negative stimulation at 0.5MA Blood Aspirated: No Pain Paresthesia on Injection Noted: No Resistance on Injection: Normal Image Stored and Saved: Yes Events: Uneventful and Well Tolerated
--- NOTE | 2024-11-08 09:07 | P.OP ---
Date of Procedure: 11/08/24 Preoperative Diagnosis: Right shoulder impingement Postoperative Diagnosis: 1. Right shoulder rotator cuff tear 2. Right shoulder impingement 3. Right shoulder bicipital tendinitis 4. Right shoulder acromioclavicular joint osteoarthritis 5. Right shoulder superficial labral tear Procedure(s) Performed: 1. Right shoulder arthroscopic rotator cuff repair 2. Right shoulder arthroscopic subacromial decompression 3. Right shoulder arthroscopic biceps tenodesis 4. Right shoulder arthroscopic Andrés procedure 5. Right shoulder arthroscopic debridement labral tear Implants: 4Arthrex 4.75 swivel lock anchors Anesthesia: GETA, regional (Interscalene block) Surgeon: Haris Almazan Portable Pinch Riveter #1: Vitaliy Collins Estimated Blood Loss (ml): 7 Pathology: none sent Condition: stable Disposition: PACU Indications for Procedure: 59-year-old patient seen with progressive right shoulder pain. After having treatment options discussed, she elected to proceed with arthroscopy. Operative Findings: See description of procedure Description of Procedure: Patient underwent an interscalene block by department of anesthesia. The patient was then taken to the operative suite. The patient underwent a general anesthetic by the department of anesthesia. The patient was placed into a lateral position and secured. There was appropriate padding of the bony prominence. Right shoulder was then prepped and draped in normal sterile orthopedic fashion. We placed the extremity in 10 pounds of longitudinal traction. A posterior incision was now made for a posterior working portal site. The trocar and cannula were inserted into the glenohumeral joint. Arthroscopy was initiated. Spinal needle was now inserted anteriorly, to ascertain the anterior working portal site. An incision was now made in that area, a trocar was inserted followed by a probe. There was hyperemia and partial tearing long head biceps tendon. There was a superficial anterior labral tear present. The glenohumeral joint was otherwise unremarkable with no evidence of any significant chondromalacia present. I had used a motorized shaver and debrided out the superficial labral tear. I decided to proceed with arthroscopic biceps tenodesis. I reduced a cannula through the anterior portal site. I passed a loop and tack type stitch through the biceps tendon and then release her from the superior labral anchor. With the assistance of Tomas CASTAÑEDA I punched a hole at the interval for insertion of an anchor. The suture limb was now passed through the eyelet of an Arthrex 4.75 swivel lock anchor. We placed the anchor eyelet into the prepunched a hole, I held it in position while Tomas CASTAÑEDA tensioned the suture and deployed the anchor with good fixation noted. The residual suture limb was now clipped. There was a stable appearing biceps tenodesis. Instruments were now removed from the glenohumeral joint. Utilizing the posterior working portal site, the trocar and cannula were inserted into the subacromial space. Arthroscopy initiated. I made an incision 2 fingerbreadths lateral to the acromion. I introduced my trocar followed by my ArthroCare ablator. I now began ablating thick subacromial bursal tissue, which exposed the undersurface of the anterior acromion. There was diminished subacromial space. There was a very prominent anterior acromion. A motorized bur was introduced and a subacromial decompression was performed. I also excised some osteophytes off the inferior aspect of the distal clavicle. The AC joint was visualized and noted to be fairly arthritic. The motorized bur was introduced in the anterior portal site and a Andrés procedure was performed without difficulty, decompressing the AC joint nicely. I turned my attention to the rotator cuff. There was a 22.5 cm rotator cuff tear. I debrided the margins getting down to stable tendon tissue. I introduced my motorized bur and abraded the footprint area, getting some petechial bleeding. I now made an accessory portal site off the lateral aspect of the acromion. I now introduced 1 medial row anchor utilizing 3 sutures and 1 Arthrex 4.75 swivel lock anchor. With the assistance of Tomas CASTAÑEDA I now passed the 6 suture limbs through good bites of rotator cuff tendon. We now crisscross the sutures punched to holes lateral for lateral fixation. We now introduced a lateral 4.75 swivel lock anchors compressing the tendon along the footprint very nicely. All residual suture limbs were now clipped. We had good compression of the tendon along the entire footprint. Instruments now removed from the portal sites. All portal sites were approximated with nylon suture. Sterile dressings were applied followed by a shoulder sling. Vitaliy CASTAÑEDA assisted in this complex case. The patient was awakened, transferred to a bed, and taken to recovery in stable condition.
[2024-11-08 09:56] VITALS: RESP 16
[2024-11-08 10:08] VITALS: BP 128/77; PULSE 78
[2024-11-08] MEDS: ONDANSETRON ODT 4 MG TAB PO STA (10:30)
== END 2024-11-08 11:12 | disposition home or self-care (01) ==
LOC: OR 05:50
PROVIDERS: ATTEND Orthopaedic Surgery
DX: M75.111 Incomplete rotator cuff tear or rupture of right shoulder, not specified as traumatic (principal); M75.21 Bicipital tendinitis, right shoulder; S43.431A Superior glenoid labrum lesion of right shoulder, initial encounter; M19.011 Primary osteoarthritis, right shoulder; M75.41 Impingement syndrome of right shoulder; G89.18 Other acute postprocedural pain; K21.9 Gastro-esophageal reflux disease without esophagitis; F41.9 Anxiety disorder, unspecified; Z79.891 Long term (current) use of opiate analgesic; Z79.899 Other long term (current) drug therapy; Z96.652 Presence of left artificial knee joint; Z88.0 Allergy status to penicillin
CPT/HCPCS: 29827; 29828; 29826; 29824; 64415; C1713 ×3; J2250; J0330; J1100; J0690; J2405; J2003; J3010; J2795; J1885; J2704